=== PATIENT | female | born 1980 | race African-American/Black ===

== ENCOUNTER → 2019-02-10 08:30 | Outpatient (CLI) | payer OTHER, SELFPAY ==
--- NOTE | 2019-02-10 08:32 | BI_ITS ---
MAMMOGRAPHY - BILATERAL SCREENING REASON FOR EXAM: Female, 38 years old. Routine annual screening examination. PERTINENT HISTORY: Mother with breast cancer. Aunt with breast cancer. TECHNIQUE: Digital bilateral breast randy (3D mammographic acquisition) in the CC and MLO projections. 2-D mediolateral oblique (MLO) and craniocaudad (CC) views of both breasts were obtained. CAD: Full Field Digital Mammography with Computer Added Detection was performed. COMPARISON: Comparison is made with prior study dated November 03, 2016. FINDINGS: Breast Composition: The breasts are extremely dense, which lowers the sensitivity of mammography. There are no dominant masses or suspicious calcifications. No other significant abnormalities are identified. There has been no significant change since the prior study. BI/SCREEN MAMM (CAD) W/RANDY BILAT IMPRESSION: Stable bilateral screening mammogram. Yearly follow-up mammogram recommended. (A) ASSESSMENT CATEGORY: BIRADS Category 1: Negative. A letter regarding these results will be sent to the patient by the facility within 30 days. Approximately 10% of breast cancers are not detected by mammography. A normal mammogram should not delay biopsy of a clinically suspicious abnormality. [id number] Electronically Signed: Fidel Leyva, at 8:42 EST , Service support ,
== END ==
PROVIDERS: Referring Provider Nurse Practitioner Women's Health; Visit Provider Nurse Practitioner Women's Health
DX: Z12.31 Encounter for screening mammogram for malignant neoplasm of breast (principal); Z80.3 Family history of malignant neoplasm of breast
CPT/HCPCS: 77063; 77067

== ENCOUNTER → 2019-04-27 11:22 | Outpatient (CLI) | payer OTHER, SELFPAY ==
[2019-04-27 11:06] VITALS: BMI 23.4
[2019-04-27 11:39] LABS: Absolute Neutrophil Count 4.7 X10^3/uL (2.0-7.7); Basophil# 0.04 X10^3/uL; Basophil% 0.6 % (0-1); Eosinophil# 0.14 X10^3/uL; Eosinophils% 1.9 % (0-5); Hematocrit 45.7 % (37-47); Lymphocyte % 23.5 % (19-41); Mean Corp Hgb Conc 32.8 g/dL (32-36); Mean Corpuscular Hgb 30.7 pg (27.0-32.0); Mean Corpuscular Volume 93.5 fL (81-99); Mean Platelet Vol. 9.7 fl (6.2-12.0); Monocyte# 0.62 X10^3/uL; Monocyte% 8.6 % (0-10); NRBC Flagged by Analyzer 0 % (0-5); Neutrophil % 65.1 % (47-70); Platelet Count 320 K/mm3 (150-450); RBC Distribution Width CV 11.9 % (11.6-14.6); RBC Distribution Width SD 41.1 fl (35.1-43.9); Red Blood Count 4.89 M/mm3 (4.2-5.4); White Blood Count 7.2 K/mm3 (4.4-11.0)
[2019-04-27 12:20] LABS: Thyroid Stim Hormone (TSH) 1.07 uIU/mL (0.358-3.74)
== END ==
LOC: PAVLAB 11:23
PROVIDERS: Referring Provider Obstetrics & Gynecology; Visit Provider Obstetrics & Gynecology
DX: N93.9 Abnormal uterine and vaginal bleeding, unspecified (principal)
CPT/HCPCS: 36415; 84443; 85025

== ENCOUNTER → 2019-05-08 15:46 | Outpatient (CLI) | payer OTHER, SELFPAY ==
[2019-04-27 11:06] VITALS: BMI 23.4
--- NOTE | 2019-05-08 15:49 | US_ITS ---
STUDY: ULTRASOUND OF THE FEMALE PELVIS - COMPLETE REASON FOR EXAM: Female, 38 years old. MIDLINE PELVIC PAIN LMP: April 27, 2019. TECHNIQUE: Transabdominal and Transvaginal TECHNICAL QUALITY: Adequate. COMPARISON: None. FINDINGS: The uterus is anteverted and is in a midline position. The uterus measures 9.7 cm x 5.6 cm x 5.0 cm. There is a Nabothian cyst of the cervix. The endometrium measures 5.2 mm in thickness, and is hyperechoic. There is no demonstrated endometrial mass. 2 uterine fibroids are seen in the body of the uterus. The larger measures 1.3 cm x 1 cm x 0.7 cm. I.U.D. - The patient does not have an I.U.D. The right ovary is visualized. The right ovary measures 3.8 cm x 2.4 cm x 2.4 cm. There is no right ovarian cyst or ovarian mass. There is no visualized right adnexal mass or complex lesion. There is normal arterial and normal venous vascularity. The left ovary is visualized. The left ovary measures 2.8 cm x 1.7 cm x 1.3 cm. There is no left ovarian cyst or ovarian mass. There is no visualized left adnexal mass or complex lesion. There is normal arterial and normal venous vascularity. There is no fluid in the cul-de-sac. The pre void volume of the bladder was 242 ml. Polycystic ovary disease: No. US/Pelvic (Non ) IMPRESSION: Uterine fibroids. Electronically Signed: Fidel Leyva, at 16:31 EST , Service support ,
--- NOTE | 2019-05-08 15:49 | US_ITS ---
STUDY: ULTRASOUND OF THE FEMALE PELVIS - COMPLETE REASON FOR EXAM: Female, 38 years old. MIDLINE PELVIC PAIN LMP: April 27, 2019. TECHNIQUE: Transabdominal and Transvaginal TECHNICAL QUALITY: Adequate. COMPARISON: None. FINDINGS: The uterus is anteverted and is in a midline position. The uterus measures 9.7 cm x 5.6 cm x 5.0 cm. There is a Nabothian cyst of the cervix. The endometrium measures 5.2 mm in thickness, and is hyperechoic. There is no demonstrated endometrial mass. 2 uterine fibroids are seen in the body of the uterus. The larger measures 1.3 cm x 1 cm x 0.7 cm. I.U.D. - The patient does not have an I.U.D. The right ovary is visualized. The right ovary measures 3.8 cm x 2.4 cm x 2.4 cm. There is no right ovarian cyst or ovarian mass. There is no visualized right adnexal mass or complex lesion. There is normal arterial and normal venous vascularity. The left ovary is visualized. The left ovary measures 2.8 cm x 1.7 cm x 1.3 cm. There is no left ovarian cyst or ovarian mass. There is no visualized left adnexal mass or complex lesion. There is normal arterial and normal venous vascularity. There is no fluid in the cul-de-sac. The pre void volume of the bladder was 242 ml. Polycystic ovary disease: No. US/Transvaginal Non- IMPRESSION: Uterine fibroids. Electronically Signed: Fidel Leyva, at 16:31 EST , Service support ,
== END ==
LOC: US 15:49
PROVIDERS: Referring Provider Nurse Practitioner Women's Health; Visit Provider Nurse Practitioner Women's Health
DX: N93.9 Abnormal uterine and vaginal bleeding, unspecified (principal); N88.8 Other specified noninflammatory disorders of cervix uteri; D25.9 Leiomyoma of uterus, unspecified
CPT/HCPCS: 76830; 76856; 93976

== ENCOUNTER → 2020-05-15 | Outpatient (CLI) | payer OTHER, SELFPAY ==
[2020-05-15 14:59] VITALS: BMI 25.6
[2020-05-21 16:34] LABS: HPV APTIMA, High Risk Positive (Negative)
== END | disposition home or self-care (01) ==
LOC: LABSPEC 16:49
PROVIDERS: Visit Provider Obstetrics & Gynecology
DX: Z12.4 Encounter for screening for malignant neoplasm of cervix (principal)
CPT/HCPCS: 87624; 88175; G0145

== ENCOUNTER → 2020-05-29 | Outpatient (CLI) | payer OTHER, SELFPAY ==
--- NOTE | 2020-05-29 | IMM_PTH ---
PATIENT: JAM DOUGHERTY LOC: [facility] U#:[id number] AGE/SX: 39/F ROOM: RE05/29/[address]: Dr. Ellen Martin MD : 1980 BED: DIS: 05/29/2020 SPEC #: [id number] RECD: 06/02/20 14:00 STATUS: KALIA REMariela #: [id number] SUN: 05/29/20 00:[address]: Ellen Martin DEPT: IMMUNOHISTOCHEMISTRY RECD BY: Tamara Woody ENTERED: 06/02/20 14:01 SP TYPE: IMMUNO OTHR DR: Brandi Primary Care Phys Tissues: A - Endocervical B - Uterine cervix, NOS Procedures: p16 (initial) KI-67 (add) PHYSICIAN & INSTITUTION [place] [place] [id number] SPECIMEN INFORMATION: Tissue Source: A - ECC, B - Cervical biopsy at 12 o'clock Clinical Info: ASCUS/HPV positive Specimen Number: [id number] A & B CPT code: 33328 x2, 44221 x2 METHODOLOGY: Deparaffinized sections of prefer/formalin-fixed tissue or PAP/DQ stained slides are incubated with monoclonal/polyclonal antibodies/oligonucleotide probes. Localization is made via biotin free immunoperoxidase method. Appropriate controls are performed and reacted as expected. Results on target cell population are indicated in the following table: RESULTS: ANTIBODY / CLONE RESULT Block A P16 (E6H4) positive, block staining Ki-67 (30-9) positive, moderate Block B P16 (E6H4) positive, block staining Ki-67 (30-9) positive, high These tests were developed and their performance characteristics determined by [facility]. They may not have been cleared or approved by the U.S. Food and Drug Administration. The FDA has determined that such clearance or approval is not necessary. The above immunohistochemical/dualISH markers are ordered and reviewed by the Pathologist. INTERPRETATION: A. ECC: Scant fragment of squamous epithelium with moderate squamous dysplasia. B. Cervix at 12 o'clock, biopsy: Moderate to severe squamous dysplasia. BRITNI:jojo 06/03/2020
[2020-05-29 13:06] VITALS: BMI 25.3
--- NOTE | 2020-05-29 13:30 | CER_PTH ---
PATIENT: JAM DOUGHERTY LOC: [facility] #:[id number] AGE/SX: 39/F ROOM: RE05/29/[address]: Dr. Ellen Martin MD : 1980 BED: DIS: 05/29/2020 SPEC #: [id number] RECD: 05/29/20 16:39 STATUS: KALIA REMariela #: [id number] SUN: 05/29/20 13:[address]: Ellen Martin DEPT: SURGICAL PATHOLOGY RECD BY: Roslyn Lizarraga ENTERED: 05/30/20 08:18 SP TYPE: CERV OTHR DR: No Primary Care Phys Tissues: A - Endocervical B - Uterine cervix, NOS Procedures: Surgery Specimen Level IV HEADER OPERATION: Colposcopy PRE-OP DIAGNOSIS: ASCUS HPV positive TISSUE SUBMITTED: A - ECC, B - Cervical biopsy at 12 o'clock MICROSCOPIC DIAGNOSIS A. ECC: Scant detached fragment of squamous epithelium with moderate squamous dysplastic changes. Scant fragment of benign endocervical epithelium and mucous. See comment. B. Cervix at 12 o'clock, biopsy: Moderate to severe squamous dysplasia with HPV changes (HGSIL and DANIS II-III). Dysplastic changes also involves the endocervical glands. Chronic inflammation and squamous dysplasia. See comment. Valery 06/02/2020 COMMENT A & B. Immunohistochemistry ([id number]) for surrogate HPV marker (p16) supports the above diagnosis. MICROSCOPIC DESCRIPTION Slides are reviewed. GROSS DESCRIPTION A - Received in fixative is one container labeled with the patient's name and designated ECC. The specimen consists of multiple irregular fragments of adame mucoid tissue that in aggregate measure 1 x 0.5 x 0.1 cm. The specimen is totally submitted in one cassette. B - Received in fixative is one container labeled with the patient's name and designated cervix at 12 o'clock. The specimen consists of one irregular fragment of light adame soft tissue that measures 0.5 x 0.4 x 0.1 cm. The specimen is totally submitted in one cassette. / BRITNI:jojo 05/30/20 TC:3 CPT: 05255 x2
== END | disposition home or self-care (01) ==
LOC: LABSPEC 16:43
PROVIDERS: Referring Provider Obstetrics & Gynecology; Visit Provider Obstetrics & Gynecology
DX: R87.810 Cervical high risk human papillomavirus (HPV) DNA test positive (principal)
CPT/HCPCS: 88305; 88341; 88342

== ENCOUNTER 2020-08-05 09:52 | Day surgery (SDC) | payer OTHER, SELFPAY ==
[2020-07-10 16:29] VITALS: BMI 25.1
[2020-07-11 10:04] VITALS: BMI 25.1
[2020-08-04 11:02] LABS: Absolute Lymphocyte Count 1.47 X10^3/uL (0.83-4.51); Absolute Neutrophil Count 6.1 X10^3/uL (2.0-7.7); Basophil# 0.03 X10^3/uL; Basophil% 0.4 % (0-1); Eosinophil# 0.17 X10^3/uL; Eosinophils% 2.1 % (0-5); Hematocrit 44.5 % (37-47); Lymphocyte # 1.47 X10^3/ul (0.83-4.51); Lymphocyte % 17.7 % (19-41); Mean Corp Hgb Conc 31.5 g/dL (32-36); Mean Corpuscular Hgb 29.9 pg (27.0-32.0); Mean Corpuscular Volume 94.9 fL (81-99); Mean Platelet Vol. 10.4 fl (6.2-12.0); Monocyte# 0.52 X10^3/uL; Monocyte% 6.3 % (0-10); NRBC Flagged by Analyzer 0 % (0-5); Neutrophil # 6.07 X10^3/uL (2.7-7.7); Neutrophil % 73.1 % (47-70); Platelet Count 311 K/mm3 (150-450); RBC Distribution Width CV 12.1 % (11.6-14.6); RBC Distribution Width SD 42.3 fl (35.1-43.9); Red Blood Count 4.69 M/mm3 (4.2-5.4); White Blood Count 8.3 K/mm3 (4.4-11.0)
[2020-08-05 10:15] LABS: Internal QC Validated? YES +Cl - CLEAR BKGD; Pregnancy, Urine Negative Negative
[2020-08-05 10:17] VITALS: BP 143/91; PULSE 64; RESP 16; TEMP 36.7; O2SAT 97; BMI 24.6
[2020-08-05] MEDS: Lactated Ringers 1,000 ML 100 ML IV (10:25)
--- NOTE | 2020-08-05 11:05 | PCM.HP.BLA ---
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 Is patient in pain?: No Allergies [place] And Derivatives Allergy (Verified 07/10/20 16:29) Rash dust Allergy (Uncoded 05/15/20 15:00) Other seasonal allergies Allergy (Uncoded 05/15/20 15:00) Other Medications desogestrel 0.15 mg-ethinyl estradiol 0.03 mg tablet 1 tab PO QDAY #84 tab 05/08/20 [Rx Confirmed 07/10/20] cetirizine 10 mg capsule 10 mg PO DAILY PRN 05/15/20 [History Confirmed 07/10/20] Is last menstrual period known: No Post menopausal: No Patient : No : No PFSH Surgical History S/P eye surgery (Resolved) S/P tonsillectomy and adenoidectomy (Resolved) Family History Grandmother Diabetes Hypertension Grandfather Diabetes Hypertension Bone cancer Father Hypertension Diabetes Mother Breast cancer Social History (Updated 07/10/20 @ 16:[address] Tamie Agarwal MD) Smoking Status: Never smoker alcohol intake: current details: 1 glass of wine every 2-3 weeks substance use type: does not use caffeine: Yes what type of physical activity do you participate in: walking, running frequency: 1-2 times per week seatbelt use: always do you feel safe at home: Yes additional social history: - [place] Patient is working in a factory HPI discuss surgery: Details: JAM DOUGHERTY is a 39 year old who presents for sterilization consult and DANIS III diagnosis. lenkahas had AUB in the past and it has improved and she is controlled on an OCP. she has had mildly abnormal paps in the past and now had a cervical biopsy that showed DANIS III. she denies any previous cervical surgeries. she is having some allergy issues right now but controlled. Female Reproductive History Questions: Metorrhagia: No, Sexually active: Yes, Dyspareunia: No, PCB: No Menopausal Symptoms: No night sweats Pregancy History 3 Elective abortions Hx Para 2 Spontaneous abortions 1 Hx # Term Pregnancies Ectopic pregnancies Hx # Pregnancies Multiple births # of living children Past Pregnancies Del. Date Name GA/Weeks Outcome Route Bth Weight Gen Labor Lgth Anesthesia Del Locatn Provider FOB 05/09/15 Kyri 38 live - full term [facility] Dr. Agarwal 07/15/16 Manuel 38 live - full term [facility] Dr. Agarwal ROS Const Constitutional: Denies fatigue, night sweats, weight gain or weight loss ENT ENT: Reports system reviewed and no additional complaints, except as docu Cardio Card: Denies chest pain Resp Resp: Denies cough or dyspnea GI GI: Reports as per HPI; denies constipation, nausea or vomiting : Reports as per HPI; denies nipple discharge, vaginal discharge, vaginal dryness, vaginal odor or vaginal itching Musc Musc: Denies joint pain, back pain or muscle weakness Skin Skin/Breast: Denies hair loss, change in hair, dry skin, breast lump, breast pain, breast skin changes or nipple discharge Neuro Neuro: Reports system reviewed and no additional complaints, except as docu Psych Psych: Reports system reviewed and no additional complaints, except as docu Endo Endo: Denies cold intolerance, excessive sweating, heat intolerance or increased thirst Zhou/Lymph Hematologic/Lymphatic: Denies easy bleeding, Denies easy bruising, Denies enlarged lymph nodes Exam Const General: cooperative, healthy appearing, comfortable, no acute distress, well developed Orientation: alert HENAL Head: normal to inspection, normocephalic Ears: hearing grossly normal bilaterally, external ears normal Nose: external nose normal, nares normal Face and sinus: normal facial exam Neck Neck: normal visual inspection, no lymphadenopathy Thyroid: thyroid normal Chest Chest palpation & inspection: normal inspection of the chest Resp Effort & Inspection: normal respiratory effort Auscultation: clear to auscultation bilaterally Cardio Rate: regular rate Rhythm: regular rhythm Heart Sounds: S1 normal, S2 normal GI Inspection: normal to inspection, non-distended Palpation: soft, no hepatosplenomegaly Musc Other: gross motor intact no deficits, full bilateral strength Skin General: no rashes or lesions noted Neuro General: alert, awake, moves all extremities, no focal motor deficits Motor: muscle tone normal throughout Extrem General: normal to inspection, no pedal edema Psych Appearance: grossly normal Mental Status: mental status grossly normal Affect: normal affect Speech and Movement: speech and movement normal Assessment & Plan Problems 1. 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 Sterilization consult Z30.09 laparoscopic bilateral salpingectomy Plan After discussing the patient's diagnosis and treatment plan options, patient wishes to proceed with surgical management. I have discussed with the patient the risks, benefits, and alternatives of the procedure which include but are not limited to risks of anesthesia, bleeding, infection, possible damage to bowel, bladder, or surrounding vasculature which could lead to additional surgery to evaluate any complications. Patient agrees to procedure and wishes to proceed. ACOG/uptodate references given for additional information regarding procedure. 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 Tamie Agarwal MD
--- NOTE | 2020-08-05 11:35 | FALS_PTH ---
PATIENT: JAM DOUGHERTY LOC: [facility] [place] U#:[id number] AGE/SX: 39/F ROOM: RE08/05/[address]: Dr. Tamie Agarwal MD : 1980 BED: DIS: 08/05/2020 SPEC #: [id number] RECD: 08/05/20 13:26 STATUS: KALIA REMariela #: [id number] SUN: 08/05/20 11:[address]: Tamie Agarwal DEPT: SURGICAL PATHOLOGY RECD BY: Amol Marsh ENTERED: 08/06/20 09:33 SP TYPE: FALL TUBES OTHR DR: No Primary Care Phys Tissues: A - Fallopian tube B - Uterine cervix, NOS C - Endocervical Procedures: Surgery Specimen Level II Surgery Specimen Level IV Surgery Specimen Level V HEADER OPERATION: Laparoscopic salpingectomy, LEEP PRE-OP DIAGNOSIS: Sterilization, CIIN III TISSUE SUBMITTED: A ? Bilateral fallopian tubes, B ? Cervix, C ? Endocervical curettings MICROSCOPIC DIAGNOSIS A. Right and left fallopian tubes, bilateral salpingectomies: Two complete segments of fallopian tubes with no pathologic change. B. Cervix, LEEP conization: Focal moderate to severe dysplasia, DANIS II-III (HSIL). Changes consistent with HPV cytopathic effect. Nabothian cysts and chronic inflammation. Margins of excision are free of dysplasia. C. Endocervix, curettings: Fragments of lower uterine endometrium and endocervix, inflamed. AM:jojo 08/07/2020 COMMENT Reference is made to the previous case ([id number]) with a diagnosis of moderate to severe squamous dysplasia. Case has been reviewed in consultation with Dr. White who concurs with the above diagnosis. IDC:SJ MICROSCOPIC DESCRIPTION Slides are reviewed. GROSS DESCRIPTION A - Received in fixative is one container labeled with the patient's name and designated bilateral fallopian tubes. The specimen consists of bilateral fallopian tubes including fimbrial ends measuring 5 cm in length and 0.6 cm in diameter and 6 cm in length and 0.6 cm in diameter. The fallopian tubes are not identified as right or left. Sections reveal unremarkable cut surfaces. Marine Pilot sections are submitted in two cassettes with each cassette containing one fallopian tube. B - Received in fixative is one container labeled with the patient's name and designated cervix. The specimen consists of a adame, indurated piece of tissue consistent with LEEP conization measuring 2.2 x 2 cm and up to 1 cm in length. The ectocervical mucosa is unremarkable. The external os is slit-like in contour. No mucosal lesion is identified. Nonmucosal surface is inked black. The endocervical margin is inked blue. The specimen is not oriented. The specimen is radially sectioned and submitted entirely in four cassettes with each cassette containing one quadrant. C - Received in fixative is one container labeled with the patient's name and designated endocervical curettings. The specimen consists of multiple fragments of hemorrhagic soft tissue mixed with mucoid tissue that in aggregate measure 2 x 2 x 0.3 cm. The specimen is totally submitted in one cassette. / BRITNI:jojo 08/06/20 TC:0 CPT: 38100 x2, 88690, 71064
[2020-08-05] MEDS: FERRIC SUBSULFATE 8 GM SOLN (11:50)
[2020-08-05] MEDS: Lidocaine 1% (30 ml sdv) 30 ML Vial (11:54)
[2020-08-05 12:30] VITALS: BP 118/94; BP 143/91; PULSE 78; RESP 18; TEMP 36.2; O2SAT 100
--- NOTE | 2020-08-05 12:33 | OP.PCM_ITS ---
Problems Associated Problem List Diagnoses (1) Sterilization consult: (2) DANIS III (cervical intraepithelial neoplasia grade III) with severe dysplasi a: Report of Operation Date of Procedure: 08/05/20 Pre-Operative Diagnosis: see problem list Post-Operative Diagnosis: same Surgery/Procedure Performed:: LEEP procedure, laparoscopic BS Description of Surgical Findings:: grossly nl cervix nl uterus tubes ovaries condemnation engineer: Franki Hoover Type of Anesthesia: General and Local Special Medications: monsels paste Specimen's removed: cervix ecc Drains: none Estimated Blood Loss (mL): 50 Fluids Replaced: crystalloid Description of Procedure: Patient was taken in the operating room and was placed under general anesthesia was prepped and draped in normal sterile fashion in the dorsal lithotomy position. Bladder was drained of clear urine and SCDs were on preoperatively. Uterus was sounded and a uterine manipulator was placed after dilating. Attention was then paid to the abdominal portion of the procedure and the umbilicus was elevated with towel clamps and injected with Marcaine and after a 5 mm incision was made and the Veress needle was entered into the abdomen confirmed to be intra-abdominal with a low opening pressure of less than 5 mmHg. Abdomen was insufflated with CO2 gas and a 5 mm optical trocar was placed under direct visualization. A 5 mm port suprapubically was placed under direct visualization. Uterus was well visualized and bilateral fallopian tubes identified and bilateral tubes were elevated and transecting across the mesosalp inx and the attachment to the uterine corpus bilaterally the tubes were removed without complication. Excellent hemostasis was noted. Fallopian tubes were removed through the lower port site without complication. Liver and upper abdomen were visualized notably within normal limits and no other gross abnormalities were seen in the abdomen. All instruments removed from the abdomen after gas was desufflated. Port sites were closed with 3-0 Monocryl Steri's and op sites were applied. attention paid to vaginal portion of the procedure. Paracervical block was placed with 1% lidocaine and using a loop electrode the outer part of the cervix was removed including the squamocolumnar junction. Endocervical curettings were taken and the base of the cervix was cauterized around the borders and the base to obtain excellent hemostasis. Monsel's paste was placed and patient was awoken and taken recovery in stable condition. Grafts/Implants Used: none Complications none Admit VTE Documentation VTE Present on Admission: No VTE Mechan Device Prophylaxis: SCD's VTE Pharm Prophylaxis ordered?: No Procedures Urinary/Genital 52xxx-59xxx: [id number] Laproscopic BS/O
[2020-08-05 12:45] VITALS: BP 136/95; BP 143/91; PULSE 85; RESP 18; O2SAT 99
[2020-08-05 12:51] VITALS: BP 127/81; BP 143/91; PULSE 70; RESP 18; TEMP 37; O2SAT 100
[2020-08-05 14:15] VITALS: BP 105/76; BP 143/91; PULSE 67; RESP 18; TEMP 36.7; O2SAT 99
[2020-08-05 15:15] VITALS: BP 143/91
== END 2020-08-05 15:30 | disposition home or self-care (01) ==
LOC: SDC 09:52 → AC 09:53
PROVIDERS: Referring Provider Obstetrics & Gynecology; Visit Provider Obstetrics & Gynecology
PROC: (CPT 58661; principal; 2020-08-05 11:25)
PROC: 0UBC7ZZ Excision of Cervix, Via Natural or Artificial Opening (ICD-10-PCS; CPT 57522; 2020-08-05 11:25)
DX: Z30.2 Encounter for sterilization (principal); D06.0 Carcinoma in situ of endocervix; N88.8 Other specified noninflammatory disorders of cervix uteri; J30.2 Other seasonal allergic rhinitis; Z20.822 Contact with and (suspected) exposure to COVID-19; Z79.82 Long term (current) use of aspirin; Z79.899 Other long term (current) drug therapy
CPT/HCPCS: 57522; 58661; 36415; 81025; 85025; 86850; 86900; 86901; 87426; 88302; 88305; 88307; C9803; J7120; J2405

== ENCOUNTER 2021-05-12 15:54 | Outpatient (CLI) | payer OTHER, SELFPAY ==
--- NOTE | 2021-05-12 15:56 | BI_ITS ---
MAMMOGRAPHY - BILATERAL SCREENING REASON FOR EXAM: Female, 40 years old. Routine annual screening examination. PERTINENT HISTORY: Mother with breast cancer. Aunt with breast cancer. TECHNIQUE: Digital bilateral breast randy (3D mammographic acquisition) in the CC and MLO projections. 2-D mediolateral oblique (MLO) and craniocaudad (CC) views of both breasts were obtained. CAD: Full Field Digital Mammography with Computer Added Detection was performed. COMPARISON: Comparison is made with prior study dated 02/10/2019 and 11/03/2016. FINDINGS: Breast Composition: The breasts are extremely dense, which lowers the sensitivity of mammography. There are no dominant masses or suspicious calcifications. No other significant abnormalities are identified. There has been no significant change since the prior study. BI/SCRN MAMM (CAD)W/RANDY BILAT IMPRESSION: Stable bilateral screening mammogram. Yearly follow-up mammogram recommended. (A) ASSESSMENT CATEGORY: BIRADS Category 1: Negative. A letter regarding these results will be sent to the patient by the facility within 30 days. Approximately 10% of breast cancers are not detected by mammography. A normal mammogram should not delay biopsy of a clinically suspicious abnormality. [id number] Electronically Signed: Fidel Leyva MD at 8:38 EST ,
== END 2021-05-12 23:59 | disposition home or self-care (01) ==
LOC: OPBI 15:55
PROVIDERS: Referring Provider Obstetrics & Gynecology; Visit Provider Obstetrics & Gynecology
DX: Z12.31 Encounter for screening mammogram for malignant neoplasm of breast (principal); Z80.3 Family history of malignant neoplasm of breast
CPT/HCPCS: 77063; 77067

== ENCOUNTER → 2021-09-18 | Outpatient (CLI) | payer OTHER, SELFPAY ==
[2021-09-24 13:36] LABS: HPV APTIMA, High Risk Negative (Negative)
== END | disposition home or self-care (01) ==
LOC: LABSPEC 16:39
PROVIDERS: Referring Provider Obstetrics & Gynecology; Visit Provider Obstetrics & Gynecology
DX: Z12.4 Encounter for screening for malignant neoplasm of cervix (principal)
CPT/HCPCS: 87624; 88175; G0145

== ENCOUNTER → 2021-09-26 | Outpatient (CLI) | payer OTHER, SELFPAY ==
[2021-09-26 09:41] LABS: Cholesterol 198 mg/dL (200); Glucose 88 mg/dL (74-106); High Density Lipoprotein 69 mg/dL; T4 Free Direct 0.77 ng/dL (0.76-1.46); Thyroid Stim Hormone (TSH) 1.54 uIU/mL (0.358-3.74); Triglycerides 43 mg/dL; Very Low Density Lipoprotein 9 mg/dL (5-40)
[2021-09-28 08:42] LABS: Vitamin D,25 Hydroxy 18.3 ng/mL
[2021-09-28 18:07] LABS: Thyroid Peroxidase AB 13 IU/mL (0-34)
== END | disposition home or self-care (01) ==
LOC: LAB 08:13
PROVIDERS: Referring Provider Obstetrics & Gynecology; Visit Provider Obstetrics & Gynecology
DX: Z13.1 Encounter for screening for diabetes mellitus (principal); Z13.220 Encounter for screening for lipoid disorders; Z13.21 Encounter for screening for nutritional disorder; E01.0 Iodine-deficiency related diffuse (endemic) goiter
CPT/HCPCS: 36415; 80061; 82306; 82947; 84439; 84443; 86376

== ENCOUNTER → 2022-05-13 | Outpatient (CLI) | payer OTHER, SELFPAY ==
--- NOTE | 2022-05-13 16:10 | BI_ITS ---
MAMMOGRAPHY - BILATERAL SCREENING REASON FOR EXAM: Female, 41 years old. Routine annual screening examination. PERTINENT HISTORY: Mother with breast cancer. Grandmother with breast cancer. Aunt with breast cancer. TECHNIQUE: Digital bilateral breast randy (3D mammographic acquisition) in the CC and MLO projections. 2-D mediolateral oblique (MLO) and craniocaudad (CC) views of both breasts were obtained. CAD: Full Field Digital Mammography with Computer Added Detection was performed. COMPARISON: Comparison is made with prior examination dated 05/12/2021 and 02/10/2019. FINDINGS: Breast Composition: The breasts are extremely dense, which lowers the sensitivity of mammography. There are no dominant masses or suspicious calcifications. No other significant abnormalities are identified. There has been no significant change since the prior study. BI/SCRN MAMM (CAD)W/RANDY BILAT IMPRESSION: Stable bilateral screening mammogram. Yearly follow-up mammogram recommended. (A) ASSESSMENT CATEGORY: BIRADS Category 1: Negative. A letter regarding these results will be sent to the patient by the facility within 30 days. Approximately 10% of breast cancers are not detected by mammography. A normal mammogram should not delay biopsy of a clinically suspicious abnormality. [id number] Electronically Signed: Fidel Leyva MD at 8:14 EST ,
== END | disposition home or self-care (01) ==
LOC: OPBI 05-14 07:09
PROVIDERS: Visit Provider Obstetrics & Gynecology
DX: Z12.31 Encounter for screening mammogram for malignant neoplasm of breast (principal); Z80.3 Family history of malignant neoplasm of breast
CPT/HCPCS: 77063; 77067